=== PATIENT | female | born 1990 | race Caucasian/White ===

== ENCOUNTER 2017-06-17 23:27 | Emergency (ER) | payer SELFPAY ==
[~2017-06-17] VITALS: Ht 175.3 cm; Wt 109.1 kg
[2017-06-17 23:30] VITALS: BP 112/75; TEMP 98.2
[2017-06-17] MEDS ORDERED: NORCO 325 MG-7.1 TAB PO (23:34)
[2017-06-17] MEDS ORDERED: BUSPAR5 MG PO (23:35)
[2017-06-18] MEDS ORDERED: PERCOCET 325 MG1 TA2 PO (00:55)
[2017-06-18 01:47] VITALS: PULSE 85
== END 2017-06-18 01:47 | disposition home or self-care (01) ==
LOC: COL.ER 23:27
DX: S92.022A Displaced fracture of anterior process of left calcaneus, initial encounter for closed fracture (principal); G89.29 Other chronic pain; M54.9 Dorsalgia, unspecified; W10.9XXA Fall (on) (from) unspecified stairs and steps, initial encounter; X50.0XXA Overexertion from strenuous movement or load, initial encounter; Y92.009 Unspecified place in unspecified non-institutional (private) residence as the place of occurrence of the external cause
CPT/HCPCS: J1170